=== PATIENT | female | born 1990 | race Caucasian/White ===

== ENCOUNTER → 2025-01-24 06:39 | Outpatient (CLI) | payer OTHER, SELFPAY ==
--- NOTE | 2025-01-24 06:42 | DI.US.S_ITS ---
PROCEDURE: US SOFT TISSUE ABDOMEN INDICATIONS: NODULAR PAINFUL SCARRING OF SKIN W/POSSIBLE HERNIA TECHNIQUE: Real-time focused scanning was performed of the abdomen, with image documentation. COMPARISON: None. FINDINGS: Corresponding to the palpable abnormality at the left lower quadrant scar, there is a subcutaneous hypoechoic structure measuring 1.0 x 0.7 x 1.5 cm with some internal echogenic foci and minimal vascularity. No abdominal wall defect is seen. Patient appears to be partially located within the skin. IMPRESSION: Solid hypoechoic structure at the palpable area of concern may represent exuberant scar formation versus endometrioma. Additional benign or malignant solid masses are considered less likely. Approved by: Mc Tomlinson M.D. on 01/24/2025 at 10:43
== END ==
LOC: US 06:41
PROVIDERS: PCP Family Medicine; Referring Provider Family Medicine; Visit Provider Family Medicine
DX: L90.5 Scar conditions and fibrosis of skin (principal)
CPT/HCPCS: 76705

== ENCOUNTER 2025-03-04 06:52 | Day surgery (SDC) | payer OTHER, SELFPAY ==
[2025-02-14 09:44] VITALS: BMI 26.3
[2025-03-04] VITALS (8 sets, daily range): BP systolic 81–114; BP diastolic 45–69; PULSE 66–98; RESP 14–18; TEMP 36.1–36.9; O2SAT 97–100
--- NOTE | 2025-03-04 | PATH_ITS ---
[facility] Accession Number: [id number] No. of containers..01 Tissue . 01 Material submitted: . endometrium - ENDOMETRIOMA . 01 Diagnosis: SPECIMEN DESIGNATED ENDOMETRIOMA: Consistent with endometriosis. MRV 03/12/2025 1451 Local . 01 Electronically signed: . Silvina Manuel MD, Pathologist NPI- [id number] . 01 Gross description: . Received in formalin labeled with two patient identifiers and endometrioma per the requisition, is a 3.7 x 2.5 x 2.5 cm yellow and lobulated, firm, ovoid portion of unoriented soft tissue, focally surfaced by a 2.7 x 1.3 cm rooney-brown wrinkled skin ellipse. The skin shows a 1.7 cm linear, slightly depressed, well-healed, possible scar. It is inked blue and sectioned in 9 slices numbered respectively. There is a 2.0 x 2.0 x 1.5 cm ill-defined markedly firm and fibrotic area in slices 4-8. The markedly firm fibrotic area is subjacent to the scar and demonstrates rooney-white, focally whorled, firm fibrous cut surfaces with focally patchy, rooney-pink erythematous areas. The remaining surrounding soft tissue shows yellow and lobulated adipose cut surfaces with scant intervening fibrous tissue. [employer] Testing Technician sections are submitted as follows: A1: Slice 4. A2: Slice 6. A3: Slice 7. ([id number]) /LATRICIA 03/08/20252057 Local . 01 Microscopic: . CD10, PAX-8, and MS immunostains support the final diagnosis, with controls staining appropriately. . * This test was developed and the performance characteristics were validated by [employer]. It has not been cleared or approved by the U.S. Food and Drug Administration. . 01 Pathologist provided ICD-10: N80.129, N80.9, N80.6 . 01 CPT . 534279, R93563, E26354 Specimen Comment: A courtesy copy of this report has been sent to [facility] Pathology Performed at: [address] [id number] MD Mariano Villagomez MD Phone: [phone]
--- NOTE | 2025-03-04 06:03 | PM.HP.IH.1 ---
History of Present Illness History of Present Illness Date Patient Seen: 03/04/25 Chief complaint: Excision endometrioma Narrative: 34yo F presents for excision of endometrioma in scar today. [facility] Medical History (Updated 02/14/25 @ 09:42 by Ce Denney RN) ADD (attention deficit disorder) Surgical History (Updated 02/14/25 @ 09:42 by Ce Denney RN) Hx of section Social History Smoking Status: Never smoker Meds Home Medications and Allergies Home Medications ?Medication ?Instructions ?Recorded ?Confirmed ?Type dextroamphetamine-amphetamine 10 1 tab PO DAILY 02/14/25 02/14/25 History mg tablet Allergies Allergy/AdvReac Type Severity Reaction Status Date / Time Penicillins AdvReac Mild Verified 01/27/25 14:21 Exam Narrative Exam Narrative: Const General: healthy appearing, comfortable and no acute distress Orientation: alert and oriented x3 HENMT Ears: hearing grossly normal bilaterally Eyes Visual Peña: normal visual peña by confrontation Conjunctivae: conjunctivae normal Sclera: sclerae normal EOM: EOM intact bilaterally Resp Effort & Inspection: normal respiratory effort and able to speak in complete sentences Cardio Rate: regular rate GI Palpation: soft (NT) Endometrioma palpable in left side of scar Extrem General: no pedal edema and no calf tenderness Assessment & Plan Assessment and plan (1) Endometrioma: Status: Acute Plan Plan excision of endometrioma. The risks, benefits and options regarding the procedure were explained to the patient in detail. Risk discussion included but not limited to: infection, bleeding, recurrence. The patient was encouraged to ask questions and they were answered to their satisfaction. The patient understands and is agreeable to proceed. Time-Based Coding :: [TOTAL MINUTES] spent with patient and on the chart (including review of chart, obtaining history, exam, reviewing outside data, placing orders, documenting exam and treatment plan, and counseling patient) on [DATE]. PROFEE Merchandiser Seasonal Document charge(s): Yes Charge Codes Inpatient/observation care including admit and discharge same day: [id number]
[2025-03-04] MEDS: LACTATED RINGERS 1,000 ML 42 ML IV (07:23)
[2025-03-04] MEDS: SCOPOLAMINE 1 PATCH TOP (07:24)
[2025-03-04] MEDS: FAMOTIDINE 20 MG/2 ML VIAL IV (07:24)
--- NOTE | 2025-03-04 07:52 | SUR.OPER ---
Supine on padded OR bed, head on pillow, arms secured on padded arm boards at <90 degrees abduction, legs uncrossed, safety belt at thigh, tape over blanket over lower legs.
--- NOTE | 2025-03-04 08:18 | P.OP_ITS ---
Operative Date/Time/Diagnoses Date of procedure: 03/04/25 Time of procedure: 08:18 Pre-op diagnosis: Endometrioma Post-op diagnosis: same Procedure & Clinicians Procedure: Excision endometrioma abdominal wall Same procedure(s) as scheduled: Yes Indications: 34yo F with painful endometrioma in left portion of scar. Surgeon: Kan Arnold Assisted?: No Anesthesia Type: General and MAC +/- Operative Notes Findings: Palpable nodule in left portion of incision, SQ Closure Type: primary Specimen(s): other (Endometrioma) Applied: none Estimated Blood Loss (mL): 5 Blood products transfused: none Procedure in detail: After informed consent and satisfactory sedation, the lower abdomen and pubic area were prepped and draped in the usual sterile manner. The patient received appropriate preoperative antibiotics and DVT prophylaxis. Surgical time-out was performed with all team members in agreement. The mass was in the left portion of her Pfannenstiel incision. We injected 10 cc of 0.5% Marcaine with epi nephrine into the skin and subcutaneous tissues. We also diluted the remaining 20 cc with injectable saline in a one-to-one ratio. A field block was performed injecting the local anesthetic around and beneath the palpable nodule. A skin incision was fashioned with a surgical marker incorporating the section of scar above the palpable nodule. The incision was made with a 15 blade continued thro ugh the skin and subcutaneous tissues. Cautery was used in the subcutaneous plane. The skin ellipse was grasped with Allis clamps and elevated. We continued through the subcutaneous layer until the palpable area was fully raised. We then undermined the nodule in the subcutaneous plane with cautery. The nodule was palpably within the removed specimen. This was above the fascia in the subcutaneous plane. There were no other palpable nodules appreciated. With adequate hemostasis achieved with cautery, I closed the space with 3-0 Vicryl interrupted incorporating the fascia to obliterate the space. The skin incision was closed using 4-0 Monocryl in a subcuticular manner. Dermabond glue was applied as a final dressing. The estimated blood loss was minimal. The instrument, sponge and needle counts were all correct x2. The patient tolerated the procedure well and was transported to the recovery area in stable condition. Complications: none Post-operative Condition: stable Disposition: PACU Plan for aftercare: PACU then home
[2025-03-04] MEDS: ACETAMINOPHEN IV 1,000 MG/100 ML VIAL 400 MG IV (08:32)
== END 2025-03-04 09:12 | disposition home or self-care (01) ==
PROVIDERS: PCP Family Medicine; Referring Provider Family Medicine; Visit Provider Surgery
PROC: (CPT 11402; principal; 2025-03-04 07:45)
DX: D36.7 Benign neoplasm of other specified sites (principal); F98.8 Other specified behavioral and emotional disorders with onset usually occurring in childhood and adolescence
CPT/HCPCS: 11402; 12031; 81025; J0131; J0689; J1100; J1885; J2250; J2405; J2704; J3010; J7120

== ENCOUNTER 2025-03-07 17:53 | Emergency (ER) | payer OTHER, SELFPAY ==
[2025-03-07] VITALS (7 sets, daily range): BP systolic 110–150; BP diastolic 67–81; PULSE 79–103; RESP 16; TEMP 37; O2SAT 97–100; BMI 25.5
--- NOTE | 2025-03-07 19:18 | ED.LOWEXIN ---
HPI - Extremity Injury (Lower) General Chief Complaint: Extremity Injury, Lower Stated Complaint: lt leg swollen numb just had surgery tues Time Seen by Provider: 03/07/25 19:03 Source: patient Mode of arrival: Ambulatory History of Present Illness HPI Narrative: Patient here with a friend. Complains of left calf and foot tingling, all below the knee where the past 2 days. Feels like her leg and foot are swollen. No pain. No chest pain no shortness of breath no facial droop slurred speech no left upper extremity numbness or weakness. No weakness to the leg. Patient is postop day 3 status post endometrioma excision by General surgery Dr. Arnold here. Family history, brother with factor 5 Leiden deficiency. Patient has never had blood clots in legs or lungs. Patient denies any chest complaints. hip to toes exposed bilaterally. There grossly symmetric. Calves are nontender. Does have light touch difference in the foot and calf compared. Strong pedal pulses. Brisk cap refills. Negative Thomas test negative Homans test. No palpable cords Related Data Home Medications ?Medication ?Instructions ?Recorded ?Confirmed dextroamphetamine-amphetamine 10 1 tab PO DAILY 02/14/25 03/04/25 mg tablet Previous Rx's ?Medication ?Instructions ?Recorded ketorolac 10 mg tablet 10 mg PO Q6H PRN pain #20 tabs 03/04/25 Allergies Allergy/AdvReac Type Severity Reaction Status Date / Time Penicillins AdvReac Mild Rash Verified 03/07/25 18:17 Review of Systems Review of Systems Narrative: GENERAL: Negative chills, fatigue, malaise, fever, sweats. HEENT: Negative sinus pain, ear pain, sore throat RESPIRATORY: Negative dyspnea, cough CARDIOVASCULAR: Negative chest pain, palpitations GASTROINTESTINAL: Negative vomiting, nausea, abdominal pain : Negative dysuria, frequency, hematuria MUSCULOSKELETAL: Positive muscle or bony pain SKIN: Negative rash, skin lesions NEUROLOGIC: Negative weakness, positive numbness ROS Unobtainable: All systems reviewed & are unremarkable except as noted in HPI and below Patient History Medical History (Updated 03/07/25 @ 20:55 by Cristo Perales MD) ADD (attention deficit disorder) Surgical History (Updated 02/14/25 @ 09:42 by Ce Denney RN) Hx of section Social History Smoking Status: Never smoker Smoking Status: Never smoker Exam Narrative Exam Narrative: GENERAL: in no distress, not toxic not dyspneic HEAD: Normocephalic. EYES: Pupils equal round ENT: Mucous membranes moist. NECK: Trachea midline. CARDIOVASCULAR: Regular rate and rhythm RESPIRATORY: Clear to auscultation. Breath sounds equal bilaterally. No wheezes, rales, or rhonchi. GASTROINTESTINAL: Abdomen soft, non-tender BACK: No flank tenderness. EXTREMITIES: No gross deformities. hip to toes exposed bilaterally. There grossly symmetric. Calves are nontender. Does have light touch difference in the foot and calf compared. Strong pedal pulses. Brisk cap refills. Negative Thomas test negative Homans test. No palpable cords. Right calf nontender no palpable cords. Negative Thomas test negative Homans test. Foot is warm soft pink brisk cap refill strong pedal pulse. Light touch intact to calf and foot. NEURO: AOx4. Clear speech SKIN: Warm and dry PSYCH: Not anxious, is cooperative Initial Vital Signs Initial Vital Signs: Vital Signs Temperature 98.6 F 03/07/25 18:15 Pulse Rate 103 H 03/07/25 18:15 Respiratory Rate 16 03/07/25 18:15 Blood Pressure 150/67 H 03/07/25 18:15 Pulse Oximetry 100 03/07/25 18:15 Oxygen Delivery Method Room Air 03/07/25 18:15 Course Orders Ordered: ED Orders 03/07/25 19:17 periph venous low extrem lt Stat 03/07/25 19:31 CBC Auto Diff [Complete Blood Count AUTO DIFF] Stat CMP [Comprehensive Metabolic Panel] Stat PT [Prothrombin Time INR] Stat PTT Partial Thromboplastin Felipe Stat Vital Signs Vital signs: Vital Signs - 8 hr 03/07/25 18:15 03/07/25 19:32 03/07/25 19:34 Temperature 98.6 F Pulse Rate 103 H 90 Respiratory Rate 16 Blood Pressure 150/67 H 140/67 Pulse Oximetry 100 99 Oxygen Delivery Method Room Air 03/07/25 19:34 03/07/25 20:00 03/07/25 20:00 Temperature Pulse Rate 83 87 Respiratory Rate Blood Pressure 110/68 Pulse Oximetry 100 100 Oxygen Delivery Method 03/07/25 20:30 03/07/25 20:30 Temperature Pulse Rate 85 Respiratory Rate Blood Pressure 114/81 Pulse Oximetry 100 Oxygen Delivery Method Room Air MDM - Extremity Injury (Lower) Lab Data 03/07/25 19:31 03/07/25 19:31 Labs: Lab Results 03/07/25 Range/Units 19:31 WBC 7.6 (4.5-11.0) X10^3/uL RBC 4.39 (4.0-5.2) X10^6/uL Hgb 13.7 (12.0-16.0) g/dL Hct 39.8 (36-46) % MCV 90.6 (80-100) fL MCH 31.2 (26-34) PG MCHC 34.4 (30-36) % RDW 11.9 (11.6-14.8) % Plt Count 297 (150-400) X10^3/uL Neut % (Auto) 67.1 (50-75) % Lymph % (Auto) 24.6 L (25-40) % [place] % (Auto) 7.1 (3-14) % Eos % (Auto) 0.8 L (2-4) % Baso % (Auto) 0.4 (0-2) % Neut # (Auto) 5100 (2022-4123) /uL Lymph # (Auto) 1900 (8629-5426) /uL [place] # (Auto) 500 (0-900) /uL Eos # (Auto) 100 (0-450) /uL Baso # (Auto) 0 (0-100) /uL PT 10.7 (9.4-12.5) SECONDS INR 0.9 (0.9-1.3) APTT 28 (25.1-36.5) SECONDS Sodium 142 (137-145) mmol/L Potassium 3.8 (3.4-5.1) mmol/L Chloride 109 H (98-107) mmol/L Carbon Dioxide 25 (22-32) mmol/L BUN 10 (7-17) mg/dL Creatinine 0.50 L (0.52-1.04) mg/dL Estimated GFR > 60 (>60) mL/min BUN/Creatinine Ratio 20.0 (6-22) Glucose 92 (70-99) mg/dL Calcium 8.8 (8.4-10.2) mg/dL Total Bilirubin 0.4 (0.2-1.3) mg/dL AST 27 (14-36) IU/L ALT 21 (<35) IU/L Alkaline Phosphatase 49 (38-126) U/L Total Protein 7.4 (6.3-8.2) g/dL Albumin 4.4 (3.5-5.0) g/dL Globulin 3.0 (1.7-4.1) g/dL Albumin/Globulin Ratio 1.5 (1.0-2.8) Imaging Data US - DVT: Radiologist's Impression: [address] [address] Ultrasound Report Signed Patient: Adal Leon MR#: [id number] : 1990 Acct:[id number] Age/Sex: 34 / F Date of Service: 03/07/25 Loc: ED Accession Number: [id number] Procedure: US periph venous low extrem lt Ordering Provider: Cristo Perales MD PROCEDURE: US PERIPH VENOUS LOW EXTREM LT INDICATIONS: Pain/swelling TECHNIQUE: Real-time imaging, as well as color and pulse Doppler interrogation, were performed of the lower extremity deep veins from the inguinal ligament to the popliteal fossa, with documentation of the visualized calf veins. COMPARISON: None. FINDINGS: The common femoral, femoral, popliteal, and the visualized calf veins are normally compressible, and free of intraluminal thrombus. Color and pulse Doppler demonstrate normal phasic intraluminal flow. There is normal augmentation response to distal compression maneuver. IMPRESSION: No findings of lower extremity deep venous thrombosis. Dictated by: Katerin Quintero M.D. on 03/07/2025 at 20:48 Approved by: Katerin Quintero M.D. on 03/07/2025 at 20:48 [facility] Narrative Medical decision making narrative: Patient here with a friend. Complains of left calf and foot tingling, all below the knee where the past 2 days. Feels like her leg and foot are swollen. No pain. No chest pain no shortness of breath no facial droop slurred speech no left upper extremity numbness or weakness. No weakness to the leg. Patient is postop day 3 status post endometrioma excision by General surgery Dr. Arnold here. Family history, brother with factor 5 Leiden deficiency. Patient has never had blood clots in legs or lungs. Patient denies any chest complaints. hip to toes exposed bilaterally. There grossly symmetric. Calves are nontender. Does have light touch difference in the foot and calf compared. Strong pedal pulses. Brisk cap refills. Negative Thomas test negative Homans test. No palpable cords MDM After history and exam, CBC CMP PT INR PTT ultrasound left leg Differential considered: Includes but not limited to DVT SVT peripheral neuropathy Medical records reviewed: Operative notes your 3 days ago Lab Test results independently reviewed as above. Pertinent findings: WBC 7.6 hemoglobin 13.7 INR 0.9 sodium 142 potassium 3.8 BUN 10 creatinine 0.5 glucose 92 calcium 8.8 Imaging studies independently reviewed: Ultrasound left leg no DVT Consultations: None indicated at this time Re-evaluations: 8:56 p.m.. Reviewed results with patient. At this time exam and laboratory studies imaging studies are reassuring. Return precautions reviewed with her. She states she will follow up with family doctor next week. She will wear [id number] compression stockings. Return precautions reviewed and she desires discharge home Discussion: Appropriate for discharge home. Exam is reassuring. Likely not TIA/stroke. No CT imaging or MRI indicated. There is no back pain to cause radiculopathy. Patient states she has been walking around after her surgery. She is uncertain if she overdid ambulation. Diagnosis: Peripheral neuropathy Discharge Plan Departure Patient Disposition: Home Clinical Impression: Peripheral neuropathy Qualifiers: Peripheral neuropathy type: idiopathic neuropathy, unspecified Qualified Code(s): G60.9 - Hereditary and idiopathic neuropathy, unspecified Instructions: DI for Peripheral Neuropathy Activity Restrictions/Additional Instructions: Your exam and laboratory studies and ultrasound studies are reassuring. No blood clot was seen in your leg. No prescriptions are indicated this time. Please see your family doctor next week for re-evaluation. Return if worse if any questions or concerns. May use compression stockings to help mobilize fluid from your foot and leg. Return if any chest pain shortness of breath or worsening symptoms. Prescriptions: No Action dextroamphetamine-amphetamine 10 mg tablet 1 tab PO DAILY ketorolac 10 mg tablet 10 mg PO Q6H PRN (Reason: pain) Qty: 20 0RF Rx Instructions: maximum total duration of 5 days from all oral, intranasal, or parenteral formulations Referrals: Henrietta Arreola MD [Primary Care Provider, Family Practice] Stand Alone Forms: Patient Portal/API
[2025-03-07 19:36] LABS: Add Manual Diff / Slide Review NO; Hematocrit 39.8 % (36-46); Hemoglobin 13.7 g/dL (12.0-16.0); Lymphocytes Absolute Auto 1900 /uL (1100-4500); Mean Corpuscular HGB Conc 34.4 % (30-36); Mean Corpuscular Hemoglobin 31.2 PG (26-34); Mean Corpuscular Volume 90.6 fL (80-100); Platelet Count 297 X10^3/uL (150-400)
[2025-03-07 19:42] LABS: INR 0.9 (0.9-1.3); Prothrombin Time 10.7 SECONDS (9.4-12.5)
[2025-03-07 19:45] LABS: PTT Partial Thromboplastin Tim 28 SECONDS (25.1-36.5)
[2025-03-07 19:47] LABS: Alanine Aminotransferase 21 IU/L (<35); Albumin 4.4 g/dL (3.5-5.0); Albumin Globulin Ratio 1.5 (1.0-2.8); Alkaline Phosphatase 49 U/L (38-126); Blood Urea Nitrogen 10 mg/dL (7-17); Calcium 8.8 mg/dL (8.4-10.2); Carbon Dioxide 25 mmol/L (22-32); Chloride 109 mmol/L (98-107); Estimated Glomerular Filt Rate > 60 mL/min (>60); Globulin 3.0 g/dL (1.7-4.1); Glucose 92 mg/dL (70-99); HEMOLYSIS < 15 (0-50); Potassium 3.8 mmol/L (3.4-5.1); Sodium 142 mmol/L (137-145); Total Protein 7.4 g/dL (6.3-8.2)
== END 2025-03-07 21:53 | disposition home or self-care (01) ==
PROVIDERS: Emergency Provider Emergency Medicine; PCP Family Medicine
DX: G60.9 Hereditary and idiopathic neuropathy, unspecified (principal); Z98.890 Other specified postprocedural states; Z83.2 Family history of diseases of the blood and blood-forming organs and certain disorders involving the immune mechanism
CPT/HCPCS: 80053; 85025; 85610; 85730; 93971; 99281; 99284